=== PATIENT | male | born 1980 | race Two or more races ===

== ENCOUNTER 2024-07-16 18:58 | Emergency (ER) | payer OTHER, MEDICAID ==
[~2024-07-16] VITALS: Ht 165.1 cm; Wt 57.6 kg
[~2024-07-16 18:58] MED LIST: ACET500T58 PO; CYCL-837 PO; MECL1TAB42 PO
--- NOTE | 2024-07-16 19:41 | ED.PDOC ---
General HPI Comments A 44 year old male presents to the ED for urinary retention onset 3 days. Patient states he began experiencing slow urine flow 3 days ago, yesterday he noticed he urinated less and today the patient had a few drops this morning and has not urinated since then. Patient is also experiencing abdominal pain and states he has not experienced these symptoms previously. No other symptoms or modifyting factors present at this time. Time Seen by MD: 19:29 Primary Care Provider: UNKNOWN Reviewed notes: Medications, Allergies Allergies: Coded Allergies: NO KNOWN ALLERGIES (Unverified , 07/05/24) Home Meds Active Scripts Acetaminophen (Acetaminophen) 500 Mg Tab, 500 MG PO Q4HPRN, #30 TAB 0 Refills Prov:ALEX DE LEON 07/05/24 Meclizine HCl (Meclizine 25) 25 Mg Tab, 25 MG PO DAILY PRN, #14 TAB 0 Refills Prov:ALEX DE LEON 07/05/24 Cyclobenzaprine Hcl (Cyclobenzaprine Hcl) 5 Mg Tab, 1 TAB PO QHSP, #14 TAB 0 Refills Prov:ALEX DE LEON 07/05/24 Information Source: Patient Mode of Arrival: Ambulatory Severity: Moderate Timing: Days Duration: Since onset Prehospital treatment: None Symptoms: Inability to void History of: None Location: Abdomen associated signs and symptoms: Abdominal Pain, Inability to Void Past Medical History PAST MEDICAL HISTORY: Thyroid Surgical History: Denies all surgeries Family History Family History: Unknown Social History Smoker: Non-Smoker Alcohol: Denies ETOH Use Drugs: Denies Drug Use Lives In: Home Constitutional: denies: chills, diaphoresis, fatigue, fever, malaise, sweats, weakness, others EENTM: denies: blurred vision, double vision, ear bleeding, ear discharge, ear drainage, ear pain, ear ringing, eye pain, eye redness, hearing loss, mouth pain, mouth swelling, nasal discharge, nose bleeding, nose congestion, nose pain, photophobia, tearing, throat pain, throat swelling, voice changes, others Respiratory: denies: cough, hemoptysis, orthopnea, SOB at rest, shortness of breath, SOB with excertion, stridor, wheezing, others Cardiovascular: denies: chest pain, dizzy spells, diaphoresis, Dyspnea on exertion, edema, irregular heart beat, left arm pain, lightheadedness, palpitations, PND, syncope, others Gastrointestinal: reports: abdominal pain; denies: abdomen distended, blood streaked bowels, constipated, diarrhea, dysphagia, difficulty swallowing, hematemesis, melena, nausea, poor appetite, poor fluid intake, rectal bleeding, rectal pain, vomiting, others Genitourinary: reports: others (inability to void); denies: burning, dysuria, flank pain, frequency, hematuria, incontinence, penile discharge, penile sore, pain, testicle pain, testicle swelling, urgency Neurological: denies: dizziness, fainting, headache, left sided numbness, left sided weakness, numbness, paresthesia, pre-existing deficit, right sided numbness, right sided weakness, seizure, speech problems, tingling, tremors, weakness, others Musculoskeletal: denies: back pain, gout, joint pain, joint swelling, muscle pain, muscle stiffness, neck pain, others Integumetry: denies: bruises, change in color, change in hair/nails, dryness, laceration, lesions, lumps, rash, wounds, others Allergic/Immunocompromised: denies: Difficulty Healing, Frequent Infections, Hi ves, Itching, others Hematologic/Lymphatic: denies: anemia, blood clots, easy bleeding, easy bruising, swollen glands, others Endocrine: denies: excessive hunger, excessive sweating, excessive thirst, excessive urination, flushing, intolerance to cold, intolerance to heat, unexplained weight gain, unexplained weight loss, others Psychiatric: denies: anxiety, bipolar disorder, depression, hopeless, panic disorder, schizophrenia, sleepless, suicidal, others All Other Systems: Reviewed and Negative Physical Exam General Appearance: No Apparent Distress, Normal HEENT: Normal ENT Inspection, Pharynx Normal, TMs Normal Neck: Full Range of Motion, Non-Tender, Normal, Normal Inspection Respiratory: Chest Non-Tender, Lungs Clear, No Accessory Muscle Use, No Respiratory Distress, Normal Breath Sounds Cardiovascular: No Edema, No JVD, No Murmur, No Gallop, Normal Peripheral Pulses, Regular Rate/Rhythm Breast Exam: Deferred Gastrointestinal: No Organomegaly, Non Tender, No Pulsatile Mass, Normal Bowel Sounds, Soft Genitalia: Deferred Pelvic: Deferred Rectal: Deferred Extremities: No calf tenderness, Normal capillary refill, Normal inspection, Normal range of motion, Non-tender, No pedal edema Musculoskeletal : Apperance: Normal Neurologic: Alert, senior production planner II-XII nml as Tested, No Motor Deficits, Normal Affect, Normal Mood, No Sensory Deficits Cerebellar Function: Normal Reflexes: Normal Skin: Dry, Normal Color, Warm Lymphatic: No Adenopathy Was a procedure done? Was a procedure done?: No Differential Diagnosis Kidney stone (Female): N/A Kidney stone (Male): N/A Penile/Scrotal: N/A Urinary Problem (Male): Bladder Obstruction, Urinary Retention Urinary Problem (Female): N/A X-Ray, Labs, Meds, VS Vital Signs Date Time Temp Pulse Resp B/P (MAP) Pulse Ox O2 Delivery O2 Flow Rate FiO2 07/16/24 21:08 92 16 96 Room Air* 0 21 07/16/24 21:00 98.7 92 16 124/94 (104) 96 98.7 07/16/24 19:15 98.9 122 18 152/103 (119) 98 Lab Test 07/16/24 20:55 Range/Units Urine Color Light-yellow Yellow Urine Clarity Clear Clear Urine pH 5.5 5.0-9.0 Urine Specific [place] 1.012 1.001-1.035 Urine Protein Negative Negative Urine Ketones Negative Negative Urine Blood 1+ H Negative /uL Urine Nitrite Negative Negative Urine Bilirubin Negative Negative Urine Urobilinogen Normal Negative mg/dL Urine Leukocyte Esterase Negative Negative /uL Urine RBC 12 0 - 3 /hpf Urine WBC <1 0 - 3 /hpf Urine Squamous Epithelial Cells Few <5 /hpf Urine Bacteria None seen None Seen /hpf Urine Glucose Normal Normal mg/dL Time of 1ST Reevaluation: 19:59 Reevaluation 1ST: Unchanged Patient Education/Counseling: Diagnosis, Treatment, Prognosis Family Education/Counseling: No Family Present Departure 1 Departure Time of Disposition: 21:34 (Your had a catheter placed in the ER. Patient had good output with clear urine. We will discharge patient home with a leg bag and urology follow up) Impression: Primary Impression: Acute urinary retention Disposition: 01 HOME / SELF CARE / HOMELESS Condition: Stable Referrals: LORENZA COSME MD Additional Instructions: You had urinary retention. You had a figueroa catheter placed in the ER. You need to call our urologist for an appointment this week to have your catheter removed. If your symptoms worsen or you have any other concerns then please return to the ER. Discharged With: Self Critical Care Note Critical Care Time?: No Stability Stability form required: No I personally scribed for ARIELLE HARRISON MD ([email or web address]) on 07/16/24 at 19:41. Electronically submitted by Yamini Conner ([email or web address]). ARIELLE HARRISON MD Jul 16, 2024 19:41
[2024-07-16 21:00] VITALS: BP 124/94; TEMP 98.7
[2024-07-16 21:08] VITALS: PULSE 92; RESP 16; O2SAT 96
[2024-07-16 21:08] LABS: Urine Bacteria None Seen /hpf (None Seen)
[2024-07-16 21:13] LABS: Urine Blood 1+ /uL (Negative); Urine Clarity Clear (Clear); Urine Color Light-Yellow (Yellow); Urine Protein, UAD Negative (Negative); Urine Specific Gravity 1.012 (1.001-1.035); Urine Urobilinogen Normal (Negative); Urine WBC <1 /hpf (0 - 3); Urine pH 5.5 (5.0-9.0)
[2024-07-21] MEDS ORDERED: DOXY100C79 PO (11:44)
== END 2024-07-16 21:56 | disposition home or self-care (01) ==
LOC: ER 18:58
DX: R33.9 Retention of urine, unspecified (principal); E03.9 Hypothyroidism, unspecified; Z79.899 Other long term (current) drug therapy
CPT/HCPCS: 51702; 81001